=== PATIENT | female | born 1960 | race Caucasian/White ===

== ENCOUNTER 2025-01-24 22:35 | Inpatient (IN) | payer OTHER ==
[~2025-01-24] VITALS: Ht 160 cm; Wt 68.0 kg
[~2025-01-24 22:35] MED LIST: ALOG25TA PO; APIX5TAB PO; ATOR-2 PO; CLOP75TA15 PO; COR6 PO; FURO40TA5 PO; INSU100I24 SQ; ISOS30TA91 PO; LISI10TA26 PO; METF-1150 PO; OMEG100017 PO; OMEP20CA14 PO
[2025-01-24] MEDS: ALBUTEROL (0.083%) 2.5MG/3ML NEB HHN SCH (23:20)
[2025-01-24] MEDS: IPRATROPIUM BROMIDE (0.02%) 0.5MG/2.5ML NEB HHN SCH (23:20)
[2025-01-24 23:29] VITALS: PULSE 85; RESP 20; O2SAT 97
[2025-01-24 23:52] LABS: BASOPHILS % 0.9 % (0.0-2.0); EOSINOPHILS % 1.3 % (0.0-5.0); HEMATOCRIT. 32.8 % (36.0-48.0); HEMOGLOBIN. 10.4 g/dL (12.0-16.0); LYMPHOCYTES % 23.7 % (20.0-50.0); MEAN PLATELET VOLUME 8.2 fl (7.4-10.4); MONOCYTES % 9.7 % (2.0-8.0); NEUTROPHILS % 64.4 % (40.0-76.0); PLATELET 505 x1000/uL (130-400); RED BLOOD CELL COUNT 3.63 mill/uL (4.2-5.4); RED CELL DISTRIBUTION WIDTH 23.4 % (11.6-14.6)
[2025-01-24] MEDS: METHYLPREDNISOLONE SOD SUCC 125MG/2ML (ACT-O-VIAL) IV ONE (23:52)
[2025-01-24] MEDS: AZITHROMYCIN 500MG/250ML 250 ML IV ONE (23:52)
[2025-01-24] MEDS: SODIUM CHLORIDE 0.9% (SEPSIS BOLUS) IV ONE (23:53)
[2025-01-24 23:56] LABS: ADD RBC MORPHOLOGY YES
[2025-01-25] VITALS (10 sets, daily range): BP systolic 110–134; BP diastolic 53–72; PULSE 86–109; RESP 18–20; TEMP 36–36.8; O2SAT 94–98
[2025-01-25 00:06] LABS: CREATININE 1.5 mg/dL (0.6-1.0); UREA NITROGEN BLOOD 29 mg/dL (9-23)
[2025-01-25 00:07] LABS: TROPONIN I HIGH SENSITIVITY 33 ng/L (3.0-34)
[2025-01-25 00:08] LABS: ASPARTATE AMINOTRANSFERASE 20 IU/L (<34); BILIRUBIN DIRECT 0.3 mg/dL (<=3.0); BILIRUBIN TOTAL 0.8 mg/dL (0.1-1.0); PROTEIN TOTAL 7.0 g/dL (6.0-8.3)
[2025-01-25 00:10] LABS: INR 1.0
[2025-01-25 00:35] LABS: PLATELET ESTIMATE INCREASED
[2025-01-25 01:50] LABS: TROPONIN I HIGH SENSITIVITY 30 ng/L (3.0-34)
[2025-01-25] MEDS ORDERED: DEXTROSE 50% WATER 50ML SYRINGE IV PRN (03:30)
[2025-01-25] MEDS ORDERED: BUDESONIDE 0.5MG/2ML NEB HHN PRN (03:30)
[2025-01-25] MEDS ORDERED: HYDROCODONE/ACETAMINOPHEN 5/325MG TABLET PO PRN (03:45)
[2025-01-25] MEDS: IPRATROPIUM/ALBUTEROL 0.5-3(2.5)MG/3ML NEB HHN SCH (05:17)
[2025-01-25] MEDS ORDERED: IOHEXOL-350 100 ML BOTTLE ONE (06:14)
[2025-01-25] MEDS: BLOOD SUGAR DIAGNOSTIC STRIP TEST SCH (07:16)
[2025-01-25 08:13] LABS: HEMATOCRIT. 30.9 % (36.0-48.0); HEMOGLOBIN. 10.0 g/dL (12.0-16.0); MEAN PLATELET VOLUME 8.4 fl (7.4-10.4); PLATELET 489 x1000/uL (130-400); RED BLOOD CELL COUNT 3.40 mill/uL (4.2-5.4); RED CELL DISTRIBUTION WIDTH 23.5 % (11.6-14.6)
[2025-01-25] MEDS: DILTIAZEM HCL 180MG CAPSULE ER 24HR PO SCH (09:00)
[2025-01-25] MEDS: ENOXAPARIN 40MG/0.4ML SYR SUBCUT SCH (09:29)
[2025-01-25] MEDS: DOCUSATE SODIUM 100MG CAPSULE PO SCH (09:29)
[2025-01-25] MEDS: ASPIRIN 81MG TABLET PO SCH (09:30)
[2025-01-25] MEDS: EMPAGLIFLOZIN 10MG TABLET PO SCH (09:31)
[2025-01-25] MEDS: FENOFIBRATE NANOCRYSTALLIZED 48MG TABLET PO SCH (09:31)
[2025-01-25] MEDS: METFORMIN HCL 500MG TABLET PO SCH (09:31)
[2025-01-25] MEDS: METOPROLOL TARTRATE 50MG TABLET PO SCH (09:32)
[2025-01-25] MEDS: CLOPIDOGREL 75MG TABLET PO SCH (09:32)
[2025-01-25] MEDS: INSULIN LISPRO 100 UNITS/ML SUBCUT SCH (09:37)
[2025-01-25] MEDS: ACETAMINOPHEN 325MG TABLET PO PRN (11:32)
[2025-01-25 18:56] LABS: LYMPHOCYTES % MANUAL 7.0 % (20.0-60.0); MONOCYTES % MANUAL 2.0 % (2.0-8.0); NEUTROPHILS % MANUAL 91.0 % (45.0-75.0); PLATELET ESTIMATE INCREASED
[2025-01-25] MEDS: ATORVASTATIN CALCIUM 40MG TABLET PO SCH (22:38)
[2025-01-26] VITALS (9 sets, daily range): BP systolic 125–141; BP diastolic 66–79; PULSE 94–111; RESP 16–24; TEMP 36.1–37; O2SAT 94–98
[2025-01-26 06:19] LABS: BASOPHILS % 0.3 % (0.0-2.0); EOSINOPHILS % 0.4 % (0.0-5.0); HEMATOCRIT. 33.9 % (36.0-48.0); HEMOGLOBIN. 10.9 g/dL (12.0-16.0); LYMPHOCYTES % 22.0 % (20.0-50.0); MEAN PLATELET VOLUME 8.1 fl (7.4-10.4); MONOCYTES % 8.0 % (2.0-8.0); NEUTROPHILS % 69.3 % (40.0-76.0); PLATELET 523 x1000/uL (130-400); RED BLOOD CELL COUNT 3.69 mill/uL (4.2-5.4); RED CELL DISTRIBUTION WIDTH 23.7 % (11.6-14.6)
[2025-01-26] MEDS: DILTIAZEM HCL 120MG CAPSULE ER 24HR PO SCH (09:44)
[2025-01-26 15:01] LABS: CLARITY URINE CLEAR (CLEAR); COLOR URINE YELLOW (YELLOW); SPECIFIC GRAVITY URINE 1.023 (1.005-1.030)
[2025-01-26 15:02] LABS: GLUCOSE URINE 3+ (NEGATIVE); KETONES URINE NEGATIVE (NEGATIVE); LEUKOCYTE ESTERASE URINE TRACE (NEGATIVE); NITRITE URINE NEGATIVE (NEGATIVE); OCCULT BLOOD URINE NEGATIVE (NEGATIVE); PH URINE 5.5 (4.5-8.0); PROTEIN URINE NEGATIVE (NEGATIVE); UROBILINOGEN URINE 0.2 E.U./dL (0.2-1.0)
[2025-01-26 15:22] LABS: RBC URINE 0-2 /hpf (0-2); SQUAMOUS EPITHELIAL CELL URINE 2+ /lpf (RARE/1+)
[2025-01-26 15:23] LABS: BACTERIA URINE 2+
== END 2025-01-26 17:52 | disposition home or self-care (01) | DRG 291 ==
LOC: ER 22:35 → 5WST 01-25 01:09 → EDBEDREQDT 01-25 01:20 → EDBEDREQ 01-25 01:20 → EDBEDREQTM 01-25 01:20 → ENRESERV 01-25 01:38
PROVIDERS: ADMIT Internal Medicine; ATTEND Internal Medicine
DX: I11.0 Hypertensive heart disease with heart failure (principal); I50.43 Acute on chronic combined systolic (congestive) and diastolic (congestive) heart failure; J96.21 Acute and chronic respiratory failure with hypoxia; N17.9 Acute kidney failure, unspecified; J44.89 Other specified chronic obstructive pulmonary disease; I25.10 Atherosclerotic heart disease of native coronary artery without angina pectoris; E11.9 Type 2 diabetes mellitus without complications; Z99.81 Dependence on supplemental oxygen; E78.00 Pure hypercholesterolemia, unspecified; Z95.1 Presence of aortocoronary bypass graft
CPT/HCPCS: 36415; 71045; 71275; 80048; 80076; 81003; 82962; 83036; 83605; 83880; 84145; 84484; 85025; 85379; 86850; 86900; 93005; 93306; 94070; 94640; 94760; 96365; 96375; 99285; J0456; J1650; J1815; J2919; J7030; Q9967